=== PATIENT | female | born 1975 | race Caucasian/White ===

== ENCOUNTER 2019-07-12 18:41 | Observation (INO) ==
[2019-07-12] MEDS ORDERED: Nitroglycerin 0.4 MG TAB.SUBL SL PRN (19:10)
[2019-07-12 19:43] LABS: Basophils # 0.1 K/mcL (0.0-0.2); Basophils % 0.5 %; Eosinophils # 0.4 K/mcL (0.0-0.6); Eosinophils % 3.3 %; Hematocrit 37.8 % (35.3-44.9); Hemoglobin 13.3 g/dL (11.5-15.4); Immature Granulocytes % 0.3 % (0-4); Lymphocytes # 2.4 K/mcL (0.6-4.6); Lymphocytes % 22.9 %; Mean Corpuscular HGB Conc 35.2 g/dL (31.6-35.5); Mean Corpuscular Volume 85.1 fL (83.0-100.0); Mean Platelet Volume 11.9 fL (9.4-12.4); Monocytes # 0.6 K/mcL (0.0-1.3); Platelet Count 260 K/mcL (140-400); Red Blood Count 4.44 M/mcL (3.82-4.97); White Blood Count 10.5 K/mcL (4.3-11.1)
[2019-07-12 19:44] LABS: Prothrombin Time 11.8 Seconds (9.4-12.1)
[2019-07-12 19:47] LABS: Activated Partial Thrombo Time 30.9 Seconds (26.0-36.0)
[2019-07-12 20:02] LABS: BUN/Creatinine Ratio 11 (6-26); Blood Urea Nitrogen 9 mg/dL (6-20); Calcium 9.4 mg/dL (8.6-10.3); Carbon Dioxide 29 mEq/L (23-29); Chloride 99 mEq/L (98-107); Glucose 109 mg/dL (70-105); Osmolality,Calculated 283 (280-300); Potassium 3.4 mEq/L (3.5-5.1); Sodium 137 mEq/L (136-145); Troponin I < 0.03 ng/mL (< 0.04); eGFR For African Americans > 60 (> 60); eGFR For Non-African Americans > 60 (> 60)
[2019-07-12] MEDS ORDERED: GI Cocktail 40 ML EACH PO ONE (20:30)
[2019-07-13] MEDS ORDERED: Naloxone 0.4 MG/ML INJ IVP PRN (05:48)
[2019-07-13] MEDS ORDERED: Ibuprofen 600 MG TABLET PO ONE (05:50)
[2019-07-13 07:20] LABS: Hematocrit 38.1 % (35.3-44.9); Mean Corpuscular HGB Conc 36.7 g/dL (31.6-35.5); Mean Platelet Volume 12.1 fL (9.4-12.4); Platelet Count 245 K/mcL (140-400); Red Blood Count 4.38 M/mcL (3.82-4.97); White Blood Count 8.4 K/mcL (4.3-11.1)
[2019-07-13 07:44] LABS: BUN/Creatinine Ratio 11 (6-26); Blood Urea Nitrogen 9 mg/dL (6-20); Calcium 9.1 mg/dL (8.6-10.3); Carbon Dioxide 31 mEq/L (23-29); Chloride 100 mEq/L (98-107); Glucose 107 mg/dL (70-105); Osmolality,Calculated 287 (280-300); Potassium 3.6 mEq/L (3.5-5.1); Sodium 139 mEq/L (136-145); eGFR For African Americans > 60 (> 60); eGFR For Non-African Americans > 60 (> 60)
[2019-07-13 07:51] LABS: Chol/HDL Ratio 7.2 (0-4.9); Cholesterol 244 mg/dL (< 200); HDL Cholesterol 34 mg/dL (40-59); LDL Cholesterol,Calculated 168 mg/dL (0-99); Magnesium 1.8 mg/dL (1.6-2.6); Phosphorous 3.2 mg/dL (2.7-4.5); Triglycerides 209 mg/dL (< 150); Troponin I < 0.03 ng/mL (< 0.04)
[2019-07-13] MEDS ORDERED: BuPROPion SR (12 HR) 150 MG TABLET PO SCH (09:00)
[2019-07-13 11:09] VITALS: BP 105/71
[2019-07-13] MEDS ORDERED: *HR* Heparin 5,000 UNIT/ML VIAL SQ SCH (18:00)
== END 2019-07-13 14:39 | disposition home or self-care (01) ==
LOC: 3BNU 18:41 → EMEROOARM 18:41 → SUATTDRO 22:23 → 3BNU 23:15
PROVIDERS: ADMIT Internal Medicine; ATTEND Internal Medicine